=== PATIENT | female | born 1935 | race Caucasian/White ===

== ENCOUNTER 2019-10-07 15:21 | Inpatient (IN) | payer OTHER, MEDICARE ==
[~2019-10-07] VITALS: Ht 152.4 cm; Wt 92.3 kg
[2019-10-07 17:37] LABS: BASOPHIL % 0.2 % (0-2); PLATELET COUNT 239 x10^3mcL (130-400); RED CELL DISTRIBUTION WIDTH 13.2 % (11.5-14.5)
[2019-10-07 17:55] LABS: CALCIUM 9.5 mg/dL (8.5-10.1); CARBON DIOXIDE 27.5 mmol/L (21-32); CHLORIDE SERUM 98 mmol/L (98-107); CREATININE SERUM 1.3 mg/dL (0.6-1.0); GLUCOSE SERUM 373 mg/dL (74-106); POTASSIUM SERUM 4.4 mmol/L (3.5-5.1); SODIUM SERUM 136 mmol/L (136-145)
[2019-10-07 18:04] LABS: ALBUMIN 3.7 g/dL (3.4-5.0); ALKALINE PHOSPHATASE 106 U/L (46-116); ALT/SGPT 28 U/L (14-59); AST/SGOT 13 U/L (15-37); BILIRUBIN TOTAL 0.5 mg/dL (0.20-1.00); HDL CHOLESTEROL 41 mg/dL (40-60); LIPASE 160 IU/L (73-393); MAGNESIUM 1.8 mg/dL (1.8-2.4); T4(THYROXINE) 5.7 ug/dL (4.7-13.3); TOTAL PROTEIN, SERUM 7.8 g/dL (6.4-8.2)
[2019-10-07 18:05] LABS: CHOLESTEROL 306 mg/dL (<200)
[2019-10-07 20:22] LABS: UA SPECIFIC GRAVITY 1.025 (1.005-1.035); microscopic required? YES; urine erythrocyte NEGATIVE (NEGATIVE)
[2019-10-07] MEDS ORDERED: TOPROL XL25 MG (23:11)
[2019-10-07] MEDS ORDERED: FORTAMET500 M1 PO (23:11)
[2019-10-08 00:27] VITALS: BP 123/98
[2019-10-08 00:33] VITALS: Ht 152.4 cm; Wt 92.3 kg
[2019-10-08 05:25] VITALS: BP 139/56
[2019-10-08 07:01] LABS: CALCIUM 8.4 mg/dL (8.5-10.1); CARBON DIOXIDE 23.6 mmol/L (21-32); CHLORIDE SERUM 106 mmol/L (98-107); GLUCOSE SERUM 333 mg/dL (74-106); MAGNESIUM 1.7 mg/dL (1.8-2.4); SODIUM SERUM 139 mmol/L (136-145)
[2019-10-08 07:19] LABS: BASOPHIL % 0.3 % (0-2); PLATELET COUNT 200 x10^3mcL (130-400); RED CELL DISTRIBUTION WIDTH 13.4 % (11.5-14.5)
[2019-10-08 07:43] VITALS: BP 157/70
[2019-10-08 12:02] VITALS: BP 159/74
[2019-10-08 16:40] VITALS: BP 156/64
[2019-10-08 19:59] VITALS: BP 155/76
[2019-10-09 05:36] VITALS: BP 147/62
[2019-10-09 06:49] LABS: BASOPHIL % 0.3 % (0-2); PLATELET COUNT 195 x10^3mcL (130-400); RED CELL DISTRIBUTION WIDTH 13.4 % (11.5-14.5)
[2019-10-09 07:12] LABS: CALCIUM 8.6 mg/dL (8.5-10.1); CARBON DIOXIDE 23.7 mmol/L (21-32); CHLORIDE SERUM 108 mmol/L (98-107); GLUCOSE SERUM 260 mg/dL (74-106); MAGNESIUM 1.6 mg/dL (1.8-2.4); PHOSPHOROUS 3.7 mg/dL (2.5-4.9); POTASSIUM SERUM 4.3 mmol/L (3.5-5.1); SODIUM SERUM 141 mmol/L (136-145)
[2019-10-09 07:50] VITALS: BP 152/57
[2019-10-09 20:35] VITALS: BP 147/68
[2019-10-10 05:50] LABS: BASOPHIL % 0.5 % (0-2); PLATELET COUNT 204 x10^3mcL (130-400); RED CELL DISTRIBUTION WIDTH 13.6 % (11.5-14.5)
[2019-10-10 05:51] LABS: CALCIUM 8.8 mg/dL (8.5-10.1); CARBON DIOXIDE 26.7 mmol/L (21-32); CHLORIDE SERUM 105 mmol/L (98-107); CREATININE SERUM 0.9 mg/dL (0.6-1.0); GLUCOSE SERUM 237 mg/dL (74-106); POTASSIUM SERUM 3.9 mmol/L (3.5-5.1); SODIUM SERUM 140 mmol/L (136-145)
[2019-10-10 06:05] VITALS: BP 141/56
[2019-10-10] MEDS ORDERED: BACTRIM DS1 TAB PO (09:13)
[2019-10-10] MEDS ORDERED: MOTION SICKNESS25 MG PO (09:14)
[2019-10-10] MEDS ORDERED: GLUCOPHAGE500 MG PO (09:14)
[2019-10-10 09:50] VITALS: BP 155/82
[2019-10-10 13:33] VITALS: BP 155/82
== END 2019-10-10 15:45 | disposition home or self-care (01) | DRG 463 ==
LOC: ED 15:21 → MU 22:27
PROVIDERS: Emergency Medicine; ADMIT Internal Medicine
DX: N39.0 Urinary tract infection, site not specified (principal); E11.65 Type 2 diabetes mellitus with hyperglycemia; E66.01 Morbid (severe) obesity due to excess calories; I10 Essential (primary) hypertension; E78.00 Pure hypercholesterolemia, unspecified; Z90.49 Acquired absence of other specified parts of digestive tract; Z68.39 Body mass index [BMI] 39.0-39.9, adult; Z71.3 Dietary counseling and surveillance
CPT/HCPCS: 82962; G0378; J0696; J1815; J1956; J7030; J8597; Q0092